=== PATIENT | male | born 1995 | race African-American/Black ===

== ENCOUNTER 2022-06-13 14:18 | Emergency (ER) | payer SELFPAY ==
[~2022-06-13] VITALS: Ht 185.4 cm; Wt 165.0 kg
[2022-06-13 14:52] VITALS: BP 154/87
== END 2022-06-13 18:10 | disposition left against medical advice (07) ==
LOC: ER 14:18
DX: Z53.21 Procedure and treatment not carried out due to patient leaving prior to being seen by health care provider (principal)